=== PATIENT | female | born 1990 | race Caucasian/White ===

== ENCOUNTER 2017-01-03 21:35 | Emergency (ER) ==
[2017-01-03 21:45] VITALS: BP 147/86
--- NOTE | 2017-01-03 22:42 | PROVIDER DOCUMENTATION ---
[facility] General - General Source: patient - History of Present Illness-EE General [facility] Location: reports: mouth Quality of Pain: reports: aching Severity: reports: moderate Onset/Duration: reports: 1 week ago Timing: reports: still present Associated Symptoms: reports: facial pain/swelling, tooth pain. denies: nasal congestion/drainage, sinus infection, sore throat Locality of Occurance: Home - Throat/Dental Throat/Dental Problem Symptoms: reports: toothache Throat/Dental Problem Context: reports: fractured tooth <Sanjuana Gilmore - Last Filed: 01/03/17 23:19> <Una Jimenez - Last Filed: 01/04/17 00:12> - General Chief Complaint: Toothache Stated Complaint: MOUTH PAIN Time Seen by Provider: 01/03/17 22:36 Allergies/Adverse Reactions: Patient Allergies Allergy/AdvReac Type Severity Reaction Status Date / Time No Known Allergies Allergy Verified 10/21/16 22:04 Home Medications: Home Medication List Medication Instructions Recorded Confirmed Last Taken Type Codeine/Promethazine [Phenergan 10 ml PO TID PRN PRN #120 ml 10/21/16 Unknown Rx with Codeine] Oseltamivir [Tamiflu] 75 mg PO BID #10 capsule 10/21/16 Unknown Rx Ibuprofen 800 mg PO TID #20 tablet 01/03/17 Unknown Rx Penicillin V Potassium 500 mg PO 4XDAY #28 tablet 01/03/17 Unknown Rx Tramadol [Ultram] 50 mg PO Q6H PRN PRN #15 tablet 01/03/17 Unknown Rx - History of Present Illness-[facility] General Nature of Presenting Problem: 26 y/o F with no chronic medical problems presents with right lower dental pain intermittently x 3 years has been worsening x 1 week and left upper dental pain intermittently x several months that worsened today. Patient has fractured tooth right lower for several years but has not seen a dentist due to work obligations and financial reasons. She thinks maybe her wisdom tooth is coming in on left upper. Denies any fever, chills or N/V. (Una Jimenez) Review of Systems - Adult - REVIEW OF SYSTEMS - ADULT Constitutional: denies: chills, fever Eyes: reports: no symptoms reported Ears, Nose, Mouth & Throat: reports: mouth/dental pain. denies: throat pain Cardiovascular: reports: no symptoms reported Respiratory: denies: cough, shortness of breath Gastrointestinal: reports: no symptoms reported Genitourinary: reports: no symptoms reported Musculoskeletal: reports: no symptoms reported Integumentary: reports: no symptoms reported Neurological: reports: no symptoms reported Psychiatric: reports: no symptoms reported Endocrine: reports: no symptoms reported Hematologic/Lymphatic: reports: no symptoms reported Allergic/Immunologic: reports: no symptoms reported All Other Systems: Reviewed and Negative <Sanjuana Gilmore - Last Filed: 01/03/17 23:19> Past History - Adult - PAST MEDICAL HISTORY-ADULT Review of Records: reports: Old Records Reviewed, Nursing Assessment Review, Medications Reviewed, Social history reviewed & non-contributory. - SOCIAL HISTORY Smoking: cigarettes, greater than 1 pack/day Substance Use: none/never Alcohol Use Frequency: never <Sanjuana Gilmore - Last Filed: 01/03/17 23:19> - PAST MEDICAL HISTORY-ADULT Major Childhood Illnesses: reports: denies history Cardiovascular: reports: denies history Respiratory: reports: denies history Gastrointestinal: reports: denies history Obstetrical/Gynecological: reports: denies history Genitourinary: reports: denies history Musculoskeletal: reports: denies history Neurological: reports: denies history Endocrine/Immune: reports: denies history Other Conditions: reports: denies history - PRIOR SURGERIES/PROCEDURES Surgical/Procedure History: reports: none - IMMUNIZATION STATUS Childhood Immunizations: See Nurse Assessment Flu Vaccine: See Nurse Assessment - FAMILY HISTORY Family History: reviewed, not pertinent <Una Jimenez - Last Filed: 01/04/17 00:12> Physical Exam- EENT - Physical Exam EENT Initial Vital Signs Reviewed: Yes General Appearance: appears well, alert, mild distress Eye Exam: bilateral eye: normal inspection, PERRL, EOMI Ear Exam: bilateral ear: auricle normal, canal normal, TM normal Nasal Exam: normal inspection Throat Exam: other (fracture to left upper back molar, tenderness to gums). 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, grossly normal Psych/Mental Status: normal mood/affect, normal thought content, normal thought process, oriented x 3 <Sanjuana Gilmore - Last Filed: 01/03/17 23:19> Progress <Sanjuana Gilmore - Last Filed: 01/03/17 23:19> <Una Jimenez - Last Filed: 01/04/17 00:12> - PLAN OF CARE/RESULTS Progress/Plan/Lab Results: Vital Signs - 24 hr 01/03/17 21:43 Temperature 98.4 F Pulse Rate 82 Respiratory 12 Rate Blood Pressure 147/86 O2 Sat by Pulse 100 Oximetry (Sanjuana Gilmore) Vital Signs Temp Pulse Resp BP Pulse Ox 01/03/17 21:43 98.4 F 82 12 147/86 100 No Known Allergies Allergy (Verified 10/21/16 22:04) Codeine/Promethazine [Phenergan with Codeine] 10 ml PO TID PRN PRN #120 ml 10/21 Oseltamivir [Tamiflu] 75 mg PO BID #10 capsule 10/21/16 Ibuprofen 800 mg PO TID #20 tablet 01/03/17 Penicillin V Potassium 500 mg PO 4XDAY #28 tablet 01/03/17 Tramadol [Ultram] 50 mg PO Q6H PRN PRN #15 tablet 01/03/17 Patient afebrile and nontoxic appearing. No trismus or oropharyngeal edema. No signs of infection or abscess on exam, however will cover for possible underlying infection with PCN. Patient to follow up with dentist. (Una Jimenez) Departure <Sanjuana Gilmore - Last Filed: 01/03/17 23:19> - Departure Time of Disposition Order: 22:42 Certified Medical Emergency: Emergent <Una Jimenez - Last Filed: 01/04/17 00:12> - Departure DIAGNOSIS: Pain, dental Disposition: HOME 01 Condition: Good Additional Instructions: Follow up with a dentist of your choice. ED Follow Up Instructions: You have been treated by a care provider in the Emergency Department. These instructions are being provided to you so you can have an understanding of how to care for yourself upon discharge. Upon discharge from the Emergency Department, you are responsible for making arrangements for follow-up care by a physician of your choice. Take all prescribed medications as directed. Return to the Emergency Department immediately for any new or worsening symptoms. You may call the Physician Referral phone number at [phone] to obtain a list of Physicians who are taking new patients. Prescriptions: Ibuprofen 800 mg PO TID #20 tablet Penicillin V Potassium 500 mg PO 4XDAY #28 tablet Tramadol [Ultram] 50 mg PO Q6H PRN PRN #15 tablet PRN Reason: Pain Referrals: None,PCP [Primary Care Provider] - Forms: Return to School/Parent Work Instructions: Dental Pain Attestation - Scribe Verification/Attestation Scribe:: Sanjuana Gilmore Acting as Scribe for:: Ramsey Shearer Scribe documention review:: This chart was documented by a scribe and accurately reflects the service the provider performed and the decisions made by the provider. - Physician/ JUAN C Attestation Patient care was provided by Advanced Practice Provider:: Yes Advanced Practice Provider:: Una Jimenez Advanced Practice Provider documentation review:: The Mid-level provider documentation, treatment plan and medical decision making was reviewed by the physician who agrees with all treatment and medical decision making by the MLP. <Sanjuana Gilmore - Last Filed: 01/03/17 23:19> - Physician/ JUAN C Attestation Patient care was provided by Advanced Practice Provider:: Yes Advanced Practice Provider:: Una Jimenez Advanced Practice Provider documentation review:: The Mid-level provider documentation, treatment plan and medical decision making was reviewed by the physician who agrees with all treatment and medical decision making by the MLP. <Una Jimenez - Last Filed: 01/04/17 00:12> Physician Attestation
== END 2017-01-03 22:56 | disposition home or self-care (01) ==
LOC: ED 21:35
DX: K08.89 Other specified disorders of teeth and supporting structures (principal); S02.5XXA Fracture of tooth (traumatic), initial encounter for closed fracture; F17.210 Nicotine dependence, cigarettes, uncomplicated